=== PATIENT | female | born 1935 | race Caucasian/White ===

== ENCOUNTER 2019-03-21 18:44 | Inpatient (IN) | payer MEDICARE, MEDICAID ==
[~2019-03-21] VITALS: Ht 154.9 cm; Wt 58.2 kg
[2019-03-21] MEDS ORDERED: ALEN70TA10 PO (19:09)
[2019-03-21] MEDS ORDERED: TYL3B PO (19:09)
[2019-03-21] MEDS ORDERED: HYDR25TA PO (19:09)
[2019-03-21] MEDS ORDERED: ATOR40TA28 PO (19:09)
[2019-03-21] MEDS ORDERED: ASPI-1182 PO (19:09)
[2019-03-21] MEDS ORDERED: CLON0.1T2 PO (19:09)
[2019-03-21] MEDS ORDERED: METO25 PO (19:09)
[2019-03-21] MEDS ORDERED: ALLO100T PO (19:09)
[2019-03-21] MEDS ORDERED: CLOP75TA32 PO (19:09)
[2019-03-21] MEDS ORDERED: AMLO10TA7 PO (19:09)
[2019-03-21] MEDS ORDERED: VITA-328 PO (19:11)
[2019-03-21] MEDS ORDERED: LABETALOL HCL 5 MG/ML 20 ML VIAL IVP PRN (19:15)
[2019-03-21 19:33] LABS: BASOPHILS % (AUTO) 0.5 % (0.0-2.0); EOSINOPHILS % (AUTO) 3.4 % (1.0-6.0); HEMATOCRIT 29.6 % (36-46); HEMOGLOBIN 10.1 g/dL (12.0-16.0); LYMPHOCYTES # (AUTO) 1.6 K/uL (1.0-4.8); MEAN CORPUSCULAR HEMOGLOBIN 30.5 pg (26.0-34.0); MEAN CORPUSCULAR HGB CONC 34.2 G/dL (31.0-37.0); MEAN CORPUSCULAR VOLUME 89 fL (80-100); MONOCYTES # (AUTO) 0.4 K/uL (0.1-1.0); MONOCYTES % (AUTO) 6.5 % (2.0-9.0); NEUTROPHILS # (AUTO) 4.2 K/uL (1.8-7.7); NEUTROPHILS % (AUTO) 64.6 % (40.0-70.0); PLATELET COUNT (AUTO) 243 K/uL (150-450); RED BLOOD CELL COUNT(AUTO) 3.32 MIL/uL (4.00-5.20); RED CELL DISTRIBUTION WIDTH 14.2 % (11.5-14.5)
[2019-03-21] MEDS ORDERED: CloNIDine HCL 0.1 MG TABLET PO PRN (19:45)
[2019-03-21 19:49] LABS: CALCIUM, TOTAL 8.3 mg/dL (8.8-10.5); CREATININE 2.12 mg/dL (0.60-1.30)
[2019-03-21 19:52] LABS: POTASSIUM 4.4 mmol/L (3.5-5.1)
[2019-03-21 19:55] LABS: BILIRUBIN,TOTAL 0.7 mg/dL (0.1-1.0)
[2019-03-21 19:56] LABS: ALBUMIN 2.9 g/dL (3.4-5.0)
[2019-03-21] MEDS ORDERED: ASPIRIN 325 MG EC TABLET PO ONE (20:00)
[2019-03-21] MEDS ORDERED: MAGNESIUM HYDROXIDE SUSPENSION 30 ML UDCUP PO PRN (20:00)
[2019-03-21 20:01] LABS: INR 0.9 (0.9-1.1); PROTHROMBIN TIME 9.5 SEC (9.4-11.6)
[2019-03-21 20:26] LABS: TOTAL PROTEIN, SERUM 7.8 g/dL (6.4-8.2)
[2019-03-21 20:58] VITALS: BP 163/96
[2019-03-21] MEDS: DOCUSATE SODIUM 100 MG CAPSULE PO SCH (22:10)
[2019-03-21] MEDS: ATORVASTATIN CALCIUM 20 MG TABLET PO SCH (22:10)
[2019-03-21] MEDS: AmLODIPine BESYLATE 10 MG TABLET PO SCH (22:11)
[2019-03-21 23:47] VITALS: BP 146/65
[2019-03-22 04:03] VITALS: BP 166/72
[2019-03-22 07:58] VITALS: BP 124/50
[2019-03-22] MEDS: DOCUSATE SODIUM 100 MG CAPSULE PO SCH ×2 (08:08→21:08)
[2019-03-22] MEDS: FAMOTIDINE 20 MG TABLET PO SCH (08:09)
[2019-03-22] MEDS: ASPIRIN 81 MG CHEWABLE TABLET PO SCH (08:09)
[2019-03-22] MEDS: CLOPIDOGREL BISULFATE 75 MG TABLET PO SCH (08:09)
[2019-03-22 11:09] VITALS: BP 112/43
[2019-03-22] MEDS ORDERED: CLOPIDOGREL BISULFATE 75 MG TABLET PO SCH (13:45)
[2019-03-22 16:44] VITALS: BP 142/57
[2019-03-22 20:55] VITALS: BP 145/60
[2019-03-22] MEDS: AmLODIPine BESYLATE 10 MG TABLET PO SCH (21:06)
[2019-03-22] MEDS: ATORVASTATIN CALCIUM 20 MG TABLET PO SCH (21:07)
[2019-03-23 00:24] VITALS: BP 136/61
[2019-03-23] MEDS: ACETAMINOPHEN 325 MG TABLET PO PRN ×2 (02:24→12:28)
[2019-03-23 03:32] VITALS: BP 146/65
[2019-03-23 07:29] VITALS: BP 158/62
[2019-03-23] MEDS: ASPIRIN 81 MG CHEWABLE TABLET PO SCH (08:35)
[2019-03-23] MEDS: DOCUSATE SODIUM 100 MG CAPSULE PO SCH (08:35)
[2019-03-23] MEDS: FAMOTIDINE 20 MG TABLET PO SCH (08:36)
[2019-03-23] MEDS: CLOPIDOGREL BISULFATE 75 MG TABLET PO SCH (08:36)
[2019-03-23 12:30] VITALS: BP 197/80
[2019-03-23 13:51] VITALS: BP 157/67
== END 2019-03-23 16:30 | disposition home or self-care (01) | DRG 69 ==
LOC: EMS 18:45 → 5S 19:56
PROVIDERS: ADMIT Internal Medicine; ATTEND Internal Medicine
DX: G45.9 Transient cerebral ischemic attack, unspecified (principal); N18.3 Chronic kidney disease, stage 3 (moderate); I12.9 Hypertensive chronic kidney disease with stage 1 through stage 4 chronic kidney disease, or unspecified chronic kidney disease; M06.9 Rheumatoid arthritis, unspecified; I67.1 Cerebral aneurysm, nonruptured; Z88.8 Allergy status to other drugs, medicaments and biological substances; Z91.041 Radiographic dye allergy status; Z86.79 Personal history of other diseases of the circulatory system
CPT/HCPCS: 86850; 86870; 86900; 86901; 86905; 93005; 93306; 93880; 95816; 97162; 97165; 97535; 99291; G0378; J3490